=== PATIENT | female | born 1960 | race Caucasian/White ===

== ENCOUNTER 2016-11-25 13:02 | Emergency (ER) | payer SELFPAY ==
[~2016-11-25 13:02] MED LIST: BACL20 PO
[2016-11-25 13:04] VITALS: BP 130/64; PULSE 80; RESP 20; TEMP 98.6; O2SAT 98
== END 2016-11-25 13:50 | disposition left against medical advice (07) ==
LOC: NED 13:02
DX: R68.89 Other general symptoms and signs (principal)
CPT/HCPCS: 99281

== ENCOUNTER 2017-10-25 13:17 | Emergency (ER) | payer BC ==
[2017-10-25 13:23] VITALS: BP 124/60; PULSE 88; RESP 20; TEMP 98; O2SAT 97
--- NOTE | 2017-10-25 13:43 | PD ---
HPI Chief Complaint: Injury Time Seen by Provider: 13:27 Travel History International Travel<30 days: No Contact w/Intl Traveler<30days: No Traveled to known affect area: No History of Present Illness HPI Patient 56-year-old female presents emergency department for evaluation of left ankle swelling. She states that a few days ago she twisted the ankle and is also bitten by her cat which was available At all the shots are up-to-date. She states this was also on the same ankle. She was concerned because she did not know if it was from a twist or infection. She denies any fevers denies any nausea vomiting. She is able to walk on the ankle. No prior history of ankle trauma to this area. She states the pain is moderate, left ankle, context and associated signs and symptoms as above PFSH Past Medical History Arthritis: Yes Asthma: Yes Anxiety: Yes Heart Rhythm Problems: No Cardiac Catheterization: No Cardiovascular Problems: No High Cholesterol: No Chest Pain: No Congestive Heart Failure: No COPD: Yes Diabetes: No Diminished Hearing: No Gastrointestinal Disorders: Yes GERD: Yes Genitourinary: No Hypertension: No Musculoskeletal: Yes (OSTEOPORESIS) Neurologic: No Reproductive: No Respiratory: Yes Immunizations Current: Yes Sleep Apnea: Yes Menopausal: Yes : 3 Para: 1 Miscarriage: 2 Ectopic : Yes Tubal Ligation: Yes Past Surgical History Abdominal Surgery: Yes (LAPAROSCOPY) Section: Yes Coronary Artery Bypass Graft: No Hysterectomy: Yes Social History Alcohol Use: No Tobacco Use: Yes (1 ppd) Substance Use: No Allergies-Medications (Allergen,Severity, Reaction): Coded Allergies: cephalexin (Unverified Allergy, Severe, RASH, SWELLING, 10/25/17) penicillin G (Unverified Allergy, Severe, RASH, SWELLING, 10/25/17) beclomethasone (Verified Allergy, Unknown, 10/25/17) acetaminophen (Unverified Adverse Reaction, Severe, MAKES ME JITTERY, 10/25) epinephrine (Unverified Adverse Reaction, Severe, heart races, 10/25/17) hydrocodone (Unverified Adverse Reaction, Severe, MAKES ME JITTERY, ) Reported Meds & Prescriptions Reported Meds & Active Scripts Active No Active Prescriptions or Reported Medications Review of Systems Except as stated in HPI: all other systems reviewed are Neg Physical Exam Narrative GENERAL: Well-nourished, well-developed patient. In no obvious distress SKIN: Focused skin assessment warm/dry. 2 small bite marquez are seen at the base of the ankle over the calcaneus on the lateral aspect, there is also some swelling on the dorsal aspect away from the bite marquez of this foot. Bite marquez are healing well, scabbed, no surrounding erythema or swelling here. HEAD: Normocephalic. EYES: No scleral icterus. No injection or drainage. NECK: Supple, trachea midline. No JVD or lymphadenopathy. CARDIOVASCULAR: Regular rate and rhythm without murmurs, gallops, or rubs. RESPIRATORY: Breath sounds equal bilaterally. No accessory muscle use. GASTROINTESTINAL: Abdomen soft, non-tender, nondistended. MUSCULOSKELETAL: No cyanosis, or edema. Patient has some tenderness over the dorsum of the foot, no tenderness at the ankle, no tenderness in the tib-fib. Pulse motor and sensory intact distally in all 4 extremities, compartments are soft. No laxity BACK: Nontender without obvious deformity. No CVA tenderness. Data Data Last Documented VS Vital Signs Date Time Temp Pulse Resp B/P (MAP) Pulse Ox O2 Delivery O2 Flow Rate FiO2 10/25/17 13:23 98.0 88 20 124/60 (81) 97 Orders Orders Foot, Complete (Bmm7hep) (10/25/17 ) Tetanus/Diphtheria Tox Adult (Tetanus/Di (10/25/17 13:45) Acetaminophen 650 Mg/20 Ml Liq (Tylenol (10/25/17 13:45) Kemar Bandage (10/25/17 14:40) Ed Discharge Order (10/25/17 14:44) MDM Medical Decision Making Medical Screen Exam Complete: Yes Emergency Medical Condition: Yes Differential Diagnosis Bite cellulitis unlikely, ankle sprain, ankle strain, fracture. Narrative Course Patient room to the emergency department, she appears well in obvious distress, she is able to bear weight, foot x-ray negative, I highly doubt cellulitis in this patient at this time, tetanus status is up-to-date. Otherwise she is stable for discharge discussed symptomatic management follow-up with a primary care physician and return to ED criteria. Diagnosis Primary Impression: Ankle sprain Qualified Codes: S93.402A - Sprain of unspecified ligament of left ankle, initial encounter Referrals: [facility] Patient Instructions: General Instructions, RICE Therapy (ED) Med/Other Pt SpecificInfo: Prescription(s) given Scripts No Active Prescriptions or Reported Meds Disposition: 01 DISCHARGE HOME Condition: Stable Roque Perez MD Oct 25, 2017 13:43
[2017-10-25] MEDS ORDERED: TETANUS/DIPHTHERIA TOXOID ADULT 0.5 ML VIAL IM ONE (13:45)
[2017-10-25] MEDS ORDERED: ACETAMINOPHEN 650 MG/20.3 ML UDC PO ONE (13:45)
--- NOTE | 2017-10-25 14:06 | RADRPT ---
EXAM DATE/TIME: 10/25/2017 13:50 [facility] COMPARISON: No previous studies available for comparison. INDICATIONS : Left foot pain and swelling after fall. MEDICAL HISTORY : None. SURGICAL HISTORY : None. ENCOUNTER: Initial ACUITY: 4 - 6 days PAIN SCORE: 10/10 LOCATION: Left foot. FINDINGS: There is mild dorsal soft tissue swelling. No evidence of fracture, dislocation or bony destruction. Mineralization is normal and no significant articular abnormalities are evident. A moderate plantar h eel spur is noted. CONCLUSION: No acute bony findings Noah Anglin MD on October 25, 2017 at 14:04 Board Certified Radiologist. This report was verified electronically.
== END 2017-10-25 15:15 | disposition home or self-care (01) ==
LOC: NEPD 13:17
DX: S93.402A Sprain of unspecified ligament of left ankle, initial encounter (principal); J44.9 Chronic obstructive pulmonary disease, unspecified; K21.9 Gastro-esophageal reflux disease without esophagitis; W55.01XA Bitten by cat, initial encounter; X50.1XXA Overexertion from prolonged static or awkward postures, initial encounter; Z23 Encounter for immunization; Z88.0 Allergy status to penicillin
CPT/HCPCS: 73630; 90471; 90714; 96372